=== PATIENT | male | born 1975 | race Caucasian/White ===

== ENCOUNTER 2016-08-05 12:52 | Emergency (ER) | payer BC ==
[~2016-08-05] VITALS: Ht 177.8 cm; Wt 96.0 kg
[~2016-08-05 12:52] MED LIST: OMEP20CA59 PO
[2016-08-05 12:57] VITALS: TEMP 37.1; Ht 177.8 cm; Wt 96.0 kg
[2016-08-05 13:40] LABS: BASO % 0.3 %; BASO ABS # 0.02 K/uL (0-0.2); COMPLETE YES; EOS % 7.3 %; HEMATOCRIT 45.4 % (42-52); IG% 0.3 %; LYMPH % 24.3 %; LYMPH ABS # 1.66 K/uL (1.2-3.4); MEAN CELL VOLUME 86.1 fL (80-100); MEAN CORPUSCULAR HEMOGLOBIN 31.5 pg (25-34); MEAN CORPUSCULAR HGB CONC 36.6 g/dl (32-36); MEAN PLATELET VOLUME 10.3 fL (7.4-10.4); MONO % 6.2 %; NEUT % 61.6 %; PLATELET COUNT 276 K/uL (130-400); RED BLOOD COUNT 5.27 M/uL (4.7-6.1); WHITE BLOOD COUNT 6.82 K/uL (4.8-10.8)
[2016-08-05 13:48] LABS: PARTIAL THROMBOPLASTIN RATIO 1.2; PROTHROMBIN TIME (PATIENT) 10.5 SECONDS (9.0-12.0)
[2016-08-05 13:56] LABS: CREATININE 1.1 mg/dl (0.60-1.40); MAGNESIUM 2.2 mg/dl (1.8-2.4); POTASSIUM 4.1 mmol/L (3.5-5.1)
--- NOTE | 2016-08-05 14:00 | DIAGNOSTIC IMAGING REPORT ---
CHEST ONE VIEW PORTABLE CLINICAL HISTORY: Substernal Chest Pain DIZZINESS COMPARISON STUDY: No previous studies for comparison. FINDINGS: The cardiac and mediastinal contours are normal. There is no evidence of focal pulmonary consolidation. There is no evidence of failure. No pleural effusions are visualized.[ There is a calcified granuloma the left lung base. IMPRESSION: No active disease in the chest. Electronically signed by: Livan Mayberry M.D. 08/05/2016 1:59 PM Dictated Date/Time: 08/05/2016 1:59 PM
[2016-08-05 14:05] VITALS: O2SAT 98
[2016-08-05 14:06] LABS: ALB/GLOB RATIO 1.3 (0.9-2); CKMB/CK RATIO 0.5 (0-3.0); THYROID STIMULATING HORMONE 0.659 uIu/ml (0.300-4.500)
[2016-08-05 14:55] LABS: CALCIUM 9.1 mg/dl (8.5-10.1)
--- NOTE | 2016-08-05 16:44 | EMERGENCY ROOM VISIT NOTE ---
History First contact with patient: 13:05 Chief Complaint: CARDIAC ASSESSMENT Stated Complaint: CHEST PAIN,LOSS OF BALANCE,DIZZY Nursing Triage Summary: PT REPORTS CHEST PAIN FOR APPROX 5-6 MONTHS. REPORTS PAIN IS MIDSTERNAL. PT REPORTS THE LAST FEW DAYS HE HAS BEEN FEELING DIZZY AND "LIKE MY EQUILIBRIUM IS OFF." History of Present Illness The patient is a 41 year old male who presents to the Emergency Room via private vehicle with complaints of "chest pain, loss of balance, dizzy". The patient states that while working out approximately 7 months ago, he developed chest pain with heavy lifting. He thought perhaps he was overdoing the exercise therefore has stopped exercising since that point. He has had chest pain since that incident 7 months ago. He notes that it will wax and wane. He states that 3 nights ago he was walking the dog with his daughter, and then began to feel dizzy, almost like he was going to fall over and then developed mid substernal chest pain. He said the chest pain was very minimal. He states that the chest pain will sometimes radiate into his back. He states that it is been worse over the past few days, and he has now concerned over the dizziness. He notes left shoulder pain and right shoulder pain. There is minimal shortness of breath. He does have a history of acid reflux. He denies any fevers, chills, weakness. Review of Systems A complete 10-point Review of Systems was discussed with the patient, with pertinent positives and negatives listed in the History of Present Illness. All remaining Review of Systems questions can be considered negative unless otherwise specified. Past Medical/Surgical History Stomach problems Family History Does not know Social History Smoking Status: Never Smoker Alcohol Use: occasionally Occupation Status: employed Current/Historical Medications Scheduled Omeprazole (Prilosec), 20 MG PO DAILY Allergies Coded Allergies: No Known Allergies (Unverified , 06/17/15) Physical Exam Vital Signs Date Time Temp Pulse Resp B/P (MAP) Pulse Ox O2 Delivery O2 Flow Rate FiO2 08/05/16 16:54 74 18 133/90 95 08/05/16 15:06 82 18 99 08/05/16 15:01 126/93 08/05/16 14:36 101 13 96 08/05/16 14:31 137/86 08/05/16 14:06 80 19 98 08/05/16 14:05 98 Room Air 08/05/16 14:05 80 16 145/82 97 Room Air 08/05/16 13:20 96 08/05/16 13:06 69 159/91 81 147/88 94 151/99 08/05/16 12:57 37.1 86 18 147/89 100 Room Air Physical Exam VITAL SIGNS - Vital signs and nursing notes were reviewed. Patient is afebrile , hypertensive, non-tachycardic and is saturating well on room air 100%. GENERAL -41-year-old male appearing his stated age who is in no acute distress. Communicates well with provider and answers questions appropriately. SKIN - Without rashes. No petechial rashes. HEAD - NC/AT. EYES - PERRL with EOMI bilaterally. Sclera anicteric. Palpebral conjunctiva pink and moist with no injection noted. EARS - No deformities of external structures noted on gross examination bilaterally. No pain elicited with palpation of the tragus bilaterally. External auditory canals without discharge or otorrhea. Tympanic membranes pearly pham without retraction or bulging. No fluid or purulent material visualized behind the TM. Handle of malleus, umbo, cone of light, pars tensa/ flaccid all easily visualized. There is a hearing aid device in the left ear canal. NOSE - Midline and without cyanosis. No epistaxis or purulent drainage noted. Septum midline without deviation or septal hematoma noted. MOUTH/OROPHARYNX - Without perioral cyanosis. Buccal mucosa pink and moist and without leukoplakia. Tongue midline with equal elevation of palate bilaterally. No tonsillar hypertrophy, erythema, or exudates noted. Fair dentition noted. NECK - Neck with FROM. Supple to palpation. No lymphadenopathy noted. No nuchal rigidity. LUNGS - Chest wall symmetric without accessory muscle use, intercostals retractions, or central cyanosis. Normal vesicular breath sounds CTA B/L. No wheezes, rales, or rhonchi appreciated. CARDIAC - RRR with S1/S2. No murmur, rubs, or gallops appreciated. ABDOMEN - Abdominal contour without pulsations or visible masses. BS normoactive all four quadrants. No tenderness, palpable masses, hepatosplenomegaly, or ascites noted. EXTREMITIES - No clubbing or peripheral cyanosis. No pretibial edema present. +5 /5 strength noted in UE/LE bilaterally. NEUROLOGIC - Cranial nerves II through XII grossly intact. Sensory intact to light touch throughout. Patellar reflexes +2/4., normal HINTS examination PSYCH - Pt is very pleasant and interacts well with examiner. Medical Decision & Procedures ER Provider Diagnostic Interpretation: CHEST ONE VIEW PORTABLE CLINICAL HISTORY: Substernal Chest Pain DIZZINESS COMPARISON STUDY: No previous studies for comparison. FINDINGS: The cardiac and mediastinal contours are normal. There is no evidence of focal pulmonary consolidation. There is no evidence of failure. No pleural effusions are visualized.[ There is a calcified granuloma the left lung base. IMPRESSION: No active disease in the chest. Electronically signed by: Livan Mayberry M.D. 08/05/2016 1:59 PM Dictated Date/Time: 08/05/2016 1:59 PM Laboratory Results 08/05/16 13:20 Red Blood Count 5.27, Mean Corpuscular Volume 86.1, Mean Corpuscular Hemoglobin 31.5, Mean Corpuscular Hemoglobin Concent 36.6, Mean Platelet Volume 10.3, Neutrophils (%) (Auto) 61.6, Lymphocytes (%) (Auto) 24.3, Monocytes (%) (Auto) 6.2, Eosinophils (%) (Auto) 7.3, Basophils (%) (Auto) 0.3, Neutrophils # (Auto) 4.20, Lymphocytes # (Auto) 1.66, Monocytes # (Auto) 0.42, Eosinophils # (Auto) 0.50, Basophils # (Auto) 0.02 08/05/16 13:20 Test 08/05/16 13:20 08/05/16 13:37 08/05/16 15:31 White Blood Count 6.82 K/uL (4.8-10.8) Red Blood Count 5.27 M/uL (4.7-6.1) Hemoglobin 16.6 g/dL (14.0-18.0) Hematocrit 45.4 % (42-52) Mean Corpuscular Volume 86.1 fL (80-100) Mean Corpuscular Hemoglobin 31.5 pg (25-34) Mean Corpuscular Hemoglobin Concent 36.6 g/dl (32-36) Platelet Count 276 K/uL (130-400) Mean Platelet Volume 10.3 fL (7.4-10.4) Neutrophils (%) (Auto) 61.6 % Lymphocytes (%) (Auto) 24.3 % Monocytes (%) (Auto) 6.2 % Eosinophils (%) (Auto) 7.3 % Basophils (%) (Auto) 0.3 % Neutrophils # (Auto) 4.20 K/uL (1.4-6.5) Lymphocytes # (Auto) 1.66 K/uL (1.2-3.4) Monocytes # (Auto) 0.42 K/uL (0.11-0.59) Eosinophils # (Auto) 0.50 K/uL (0-0.5) Basophils # (Auto) 0.02 K/uL (0-0.2) RDW Standard Deviation 40.8 fL (36.4-46.3) RDW Coefficient of Variation 12.8 % (11.5-14.5) Immature Granulocyte % (Auto) 0.3 % Immature Granulocyte # (Auto) 0.02 K/uL (0.00-0.02) Prothrombin Time 10.5 SECONDS (9.0-12.0) Prothromb Time International Ratio 1.0 (0.9-1.1) Activated Partial Thromboplast Time 30.2 SECONDS (21.0-31.0) Partial Thromboplastin Ratio 1.2 Anion Gap 10.0 mmol/L (3-11) Est Creatinine Clear Calc Drug Dose 104.8 ml/min Estimated GFR () 97.5 Estimated GFR (Non- 84.1 BUN/Creatinine Ratio 11.0 (10-20) Calcium Level 9.1 mg/dl (8.5-10.1) Magnesium Level 2.2 mg/dl (1.8-2.4) Total Bilirubin 0.9 mg/dl (0.2-1) Aspartate Amino Transf (AST/SGOT) 12 U/L (15-37) Alanine Aminotransferase (ALT/SGPT) 30 U/L (12-78) Alkaline Phosphatase 50 U/L (45-117) Total Creatine Kinase 122 U/L (39-308) Creatine Kinase MB 0.6 ng/ml (0.5-3.6) Creatine Kinase MB Ratio 0.5 (0-3.0) Total Protein 7.7 gm/dl (6.4-8.2) Albumin 4.4 gm/dl (3.4-5.0) Globulin 3.3 gm/dl (2.5-4.0) Albumin/Globulin Ratio 1.3 (0.9-2) Thyroid Stimulating Hormone (TSH) 0.659 uIu/ml (0.300-4.500) Bedside D-Dimer 83 ng/mlFEU (0-450) Bedside Troponin I 0.000 ng/ml (0-0.045) Medical Decision Patient was seen and evaluated as above. After obtaining a thorough history and physical examination IV access is initiated a workup was performed. Patient presents today with 7 months of chest pain, this been worse over the past 3 days. There is associated dizziness. Clinically he appears unremarkable. His EKG shows normal sinus rhythm him a no ectopy or ischemic change. No previous for comparison. Chest x-ray is unremarkable for acute process. CBC reveals no leukocytosis or anemia. Coagulation studies within normal limits. D-dimer is unremarkable. Electrolytes unremarkable. AST low at 12. Troponin negative 2. Thyroid function within normal limits. The patient this time I do not suspect is experiencing any emergent cause of this chest pain or dizziness. My attending physician performed the H INT S examination. This was normal. I do believe the patient can be followed up in the outpatient setting with his family doctor, with potential Holter monitor, stress test or other modalities which can be done in the outpatient setting. He does not appear to have any risk factors at this time of which would warrant observation inpatient admission. The case was discussed with my attending, who also personally evaluated the patient. Patient was educated upon worrisome symptoms which to return, had questions prior to discharge, and was discharged home in good condition. He is to call her family doctor first thing when he leaves here or tomorrow morning to schedule follow-up. In evaluation treatment this patient following differential diagnoses entertained: CVA, TIA, tumor, malignancy, TX, PE, pneumonia, lung cancer, among others. Impression Primary Impression: Chest pain Additional Impression: Dizziness Departure Information Dispostion Home / Self-Care Condition GOOD Referrals No Doctor, Assigned (PCP) Patient Instructions My [facility] Additional Instructions You were seen in the emergency department for chest pain and dizziness. Laboratory studies and imaging has ruled out any emergent cause at this time however, it is recommended that he follow up with your family doctor by calling them as soon as possible regarding today's visit. Please refrain from strenuous physical activity until seen and evaluated by your family doctor, and potentially a spare fixer. Please return to the emergency department with any new/concerning symptoms. Thank you for your time. Problem Qualifiers
[2016-08-05 16:54] VITALS: BP 133/90; PULSE 74; O2SAT 95
== END 2016-08-05 16:56 | disposition home or self-care (01) ==
LOC: C.EDB 12:54 → C.EDC 16:56
DX: R07.9 Chest pain, unspecified (principal); R42 Dizziness and giddiness

== ENCOUNTER → 2016-08-19 | Outpatient (CLI) | payer BC ==
--- NOTE | 2016-08-19 10:42 | DIAGNOSTIC IMAGING REPORT ---
CHEST CT WITHOUT CONTRAST CT DOSE: 432.36 mGy.cm HISTORY: R93.8 Abnormal chest xrayleft lower lobe calcified granuloma on TECHNIQUE: Multiaxial CT images of the chest were performed without contrast. COMPARISON: Chest series dated 08/05/2016 FINDINGS: Benign calcified granuloma left lung base. Lungs otherwise appear clear. There are no focal infiltrates. No significant hilar or mediastinal adenopathy. IMPRESSION: Calcified granuloma left lung base considered a benign finding. Study is otherwise negative. Electronically signed by: James Heller M.D. 08/19/2016 10:41 AM Dictated Date/Time: 08/19/2016 10:37 AM
== END | disposition home or self-care (01) ==
LOC: C.CTS 09:46
PROVIDERS: ATTEND Nurse Practitioner
DX: R93.8 Abnormal findings on diagnostic imaging of other specified body structures (principal)

== ENCOUNTER 2021-01-21 05:36 | Inpatient (IN) ==
[2021-01-21] MEDS ORDERED: LORazepam 1 MG/2 ML VIAL IV STA (06:19)
[2021-01-21] MEDS ORDERED: dexAMETHasone**PF** 10 MG/ML VIAL IV ONE (06:19)
[2021-01-21] MEDS ORDERED: KETOROLAC 30 MG/ML VIAL IV STA (06:19)
[2021-01-21] MEDS ORDERED: SODIUM CHLORIDE 0.9% 1000ML 1,000 ML IV SCH (06:30)
--- NOTE | 2021-01-21 07:09 | Emergency Department Note ---
History of Present Illness General Chief complaint: Leg Injury/Pain Stated complaint: LEFT LEG PAIN FROM HIP TO ANKLE Time Seen by Provider: 01/21/21 05:49 History of Present Illness Maximum Pain Intensity: 10 This is a 45-year-old male presenting to the emergency department for severe 10 /10 pain from his left hip into his left lower leg. The patient has had symptoms like this for the past 2 weeks, and this is his third visit to the ER with this complaint. The patient has followed with interventional pain management and had recent injections under fluoroscopy. He was seen by pain management yesterday, where it was documented that he had decreased L4 reflexes, and MRI was to be ordered, but has not yet been performed. The patient states that he left his appointment yesterday with pain management feeling well, however around 10 PM he had worsening of symptoms, this is roughly 8 hours ago. He states that he took a dose of oxycodone without any relief of symptoms. He has not had fevers or chills. No loss of bowel or bladder control. Home Medications Medication Instructions Recorded Confirmed Type Saccharomyces boulardii 250 mg 250 mg PO DAILY cap 09/23/20 01/21/21 History capsule (Daily Probiotic (S. boulardii)) cholecalciferol (vitamin D3) 125 125 mcg PO DAILY 11/05/20 01/21/21 History mcg (5,000 unit) capsule cyanocobalamin (vitamin B-12) 1,000 mcg PO DAILY 11/05/20 01/21/21 History 1,000 mcg capsule oxycodone 5 mg tablet 5 mg PO Q6H PRN #14 tab 01/08/21 01/21/21 Rx omeprazole 10 mg capsule,delayed 10 mg PO QAM #90 cap 01/13/21 01/21/21 Rx release cyclobenzaprine 10 mg tablet 10 mg PO Q8H #20 tab 01/18/21 01/21/21 Rx methylprednisolone 4 mg tablets in See Rx Instructions .ROUTE 01/18/21 01/21/21 Rx a dose pack (Medrol (Mikel)) .COMPLEX #21 ea gabapentin 300 mg capsule 300 mg PO .COMPLEX #90 cap 01/20/21 01/21/21 Rx ascorbic acid (vitamin C) 500 mg 500 mg PO DAILY 01/21/21 01/21/21 History tablet (Vitamin C) Allergies Allergy/AdvReac Type Severity Reaction Status Date / Time doxycycline Allergy Mild rash on Verified 01/21/21 07:20 chest naproxen AdvReac Intermediate constipatio Verified 01/21/21 07:20 n Past Med/Surg History Medical History Arthritis Chronic low back pain Chronic sinusitis Deafness in right ear Depression with anxiety not taking prescribed meds currently Elevated blood pressure reading without diagnosis of hypertension last check 138/85 Gastritis GERD (gastroesophageal reflux disease) History of COVID-23 Feb 2020 IBS (irritable bowel syndrome) Lower extremity weakness Lumbar radiculopathy Myofascial pain Nausea and vomiting after administration of anesthetic agent Partial deafness of left ear Sacroiliac joint pain TMJ (temporomandibular joint disorder) no issues, no surgery Vitamin D deficiency Surgical History History of colonoscopy with polypectomy History of esophagogastroduodenoscopy (EGD) History of toe surgery History of tonsillectomy and adenoidectomy History of wisdom tooth extraction S/P nasal surgery Status post excision of lipoma off right shoulder Family History Unknown Breast cancer Grandfather (Maternal) Stroke Grandmother (Paternal) Family history of diabetes mellitus Other Heart disease No family history of adverse response to anesthesia Denies family history of Ovarian cancer Prostate cancer Myocardial infarction Colorectal cancer Social History Smoking Status: Former smoker Age Started Using Tobacco: 28; Age Quit Using Tobacco: 35; packs per day: 1; Years Smoked: 7; Cigarettes Per Day: 20; Second Hand Exposure: No; Hx Alcohol Use: Yes Alcohol type: hard liquor Hx Substance Use: Yes Last Used Substance: Days (ago) Last Used Substance Other:: last use 1 week ago Substance Use Type Other:: marijuana approx 2x per month > advised Preferred Language: Croatian Communication Ability: Effective Visual Impairment: No Limitations Hearing Ability: Hard of Hearing General Merchandise Manager Required: No Beliefs That Will Affect Care: None marital status: Current Living Situation: Spouse Current Living Situation Comment: Lives with and 14 yr old daughter current occupational status: employed current occupation: [employer] Feels Safe at Home: Yes Childhood Exposure to Second-Hand Smoke: Yes (parents) Assistive Devices: None Review of Systems A total of 10 systems reviewed and were otherwise negative Physical Exam Vital Signs Vital Signs - 24 hr 01/21/21 05:42 01/21/21 07:30 Temperature 36.4 C L Temperature Source Temporal Artery Scan Pulse Rate 121 H Pulse Rate [Right Finger] 56 L Pulse Rhythm [Right Finger] Regular Pulse Strength [Right Finger] Normal Respiratory Rate 24 20 Respiratory Effort / Characteristics Non-Labored Non-Labored Spontaneous Respiratory Depth Shallow Normal Respiratory Pattern Regular Blood Pressure 154/113 H Blood Pressure [Right Arm] 164/111 H Blood Pressure Mean 126 Blood Pressure Mean [Right Arm] 128 Blood Pressure Position [Right Arm] Sitting Pulse Oximetry 93 98 Oxygen Delivery Method Room Air Sepsis Recent Fever Within 48 Hours No Sepsis New/Unexplained Change in Mental Status No Sepsis Action Taken by Nursing No Action Required VITALS: Vitals are noted on the nurse's note and reviewed by myself. Vital signs stable. GENERAL: Well-developed, well-nourished, white male who appears reviewed significant discomfort. Any movement seems to elicit pain in his left leg. He is laying on the ER bed on his left side with his leg pulled up near his chest. NECK: Supple without nuchal rigidity. No lymphadenopathy. No thyromegaly. Cervical spine is nontender. HEART: Regular rate and rhythm without murmurs gallops or rubs. LUNGS: Clear to auscultation bilaterally without wheezes, rales or rhonchi. No retractions or accessory muscle use. BACK: Mild tenderness in the left side low back. There is reproducible tenderness in the left hip. Positive straight leg raise on left. No distinct saddle paresthesia. Patient is mildly cooperative with exam, secondary to his discomfort. ABDOMEN: Positive normal bowel sounds x 4. Soft, nontender, without masses or organomegaly. No guarding or rebound tenderness. MUSCULOSKELETAL: No muscle atrophy, erythema, or edema noted. Course Administered Medications Morphine Sulfate (Morphine Sulfate 4 Mg/Ml 1 Ml Carp\Vial) 4 mg IV Q30M PRN PRN Reason: Pain Stop: 02/04/21 06:18 Last Admin: 01/21/21 07:30 Dose: 4 mg Documented by: [id number] Discontinued Medications Dexamethasone Sodium Phosphate (DexamethasonePf 10 Mg/Ml Vial) 10 mg IV NOW ONE Stop: 01/21/21 06:20 Last Admin: 01/21/21 06:42 Dose: 10 mg Documented by: [id number] Sodium Chloride (Nss 1000ml) 1,000 mls @ 999 mls/hr IV .Q1H1M MARI Stop: 01/21/21 07:30 Last Infusion: 01/21/21 07:37 Dose: 0 mls/hr Documented by: [id number] Admin: 01/21/21 06:40 Dose: 999 mls/hr Documented by: [id number] Lorazepam (Ativan) 1 mg in 2 mls @ 2 mls/min IV NOW STA Stop: 01/21/21 06:20 Last Admin: 01/21/21 06:41 Dose: 2 mls/min Documented by: [id number] Ketorolac Tromethamine (Ketorolac 30 Mg/Ml Vial) 30 mg IV NOW STA Stop: 01/21/21 06:20 Last Admin: 01/21/21 06:41 Dose: 30 mg Documented by: [id number] Medical Decision Making Differential Diagnosis Differential diagnosis: Etiologies such as muscular strain, fracture, metastatic disease, disc herniation, sciatica, epidural abscess, vertebral osteomyelitis, discitis, spinal epidural hematoma, cord compression, cauda equina/conus medullaris syndrome, aortic disease, infection, shingles, renal colic UTI/pyelonephritis, gastrointestinal, acute exacerbation of chronic back pain, as well as others were entertained. Laboratory Data Result diagrams: 01/21/21 06:58 01/21/21 06:58 Lab Results 01/21/21 01/21/21 01/21/21 Range/Units 06:58 06:58 06:58 WBC 11.86 H (4.8-10.8) K/uL RBC 5.31 (4.7-6.1) M/uL Hgb 16.5 (14.0-18.0) g/dL Hct 46.4 (42-52) % MCV 87.4 (80-100) fL MCH 31.1 (25-34) pg MCHC 35.6 (32-36) g/dL RDW Std Deviation 39.9 (36.4-46.3) fL RDW Coeff of Praneeth 12.4 (11.5-14.5) % Plt Count 335 (130-400) K/uL MPV 9.8 (7.4-10.4) fL Immature Gran % (Auto) 0.2 % Neut % (Auto) 69.2 % Lymph % (Auto) 23.9 % [place] % (Auto) 6.1 % Eos % (Auto) 0.4 % Baso % (Auto) 0.2 % Neut # (Auto) 8.21 H (1.4-6.5) K/uL Lymph # (Auto) 2.84 (1.2-3.4) K/uL [place] # (Auto) 0.72 H (0.11-0.59) K/uL Eos # (Auto) 0.05 (0-0.5) K/uL Baso # (Auto) 0.02 (0-0.2) K/uL Immature Gran # (Auto) 0.02 (0.00-0.02) K/uL ESR 2 (0-15) mm/hr Sodium 137 (136-145) mmol/L Potassium 3.9 (3.5-5.1) mmol/L Chloride 105 (98-107) mmol/L Carbon Dioxide 26 (21-32) mmol/L Anion Gap 6.0 (3-11) BUN 17 (7-18) mg/dl Creatinine 1.16 (0.6-1.4) mg/dl Est Cr Clr Drug Dosing 98.8 ml/min Est GFR ( Amer) 88.9 ml/min Est GFR (Non-Af Amer) 76.7 ml/min BUN/Creatinine Ratio 14.5 (10-20) Glucose 92 (70-99) mg/dl Calcium 10.1 (8.5-10.1) mg/dl Total Bilirubin 1.1 H (0.2-1) mg/dl AST 11 L (15-37) U/L ALT 39 (12-78) U/L Alkaline Phosphatase 52 (45-117) U/L C-Reactive Protein < 0.29 (0-0.29) mg/dl Total Protein 8.4 H (6.4-8.2) gm/dl Albumin 4.7 (3.4-5.0) gm/dl Globulin 3.7 (2.5-4.0) gm/dl Albumin/Globulin Ratio 1.3 (0.9-2) MDM Narrative Physical exam and history were performed. Nursing notes, EMR, and Medication List were personally reviewed. Patient appears to have significant pain in his left leg. He does seem to have some weakness as well as some low back pain. He was seen by pain management yesterday where they were planning on ordering MRI for L4 symptoms. The patient had worsening of symptoms overnight. IV access was established and labs were obtained. He was hydrated with normal saline and given IV morphine, IV Toradol, IV Decadron, and IV Ativan. He was sent to MRI for further evaluation. The patient's blood work is as above and was reviewed. He does not have a significantly elevated white blood cell count, gross anemia, bandemia, or significant electrolyte imbalance. The patient did have improvement of symptoms after treatment here in the ER. He remained in stable condition until the time of shift change. At this time MRI is pending. The case was discussed with my colleague, Jessie Gonzalez PA-C, who will assume care at this time. Please see . Lisa's dictation for further patient course, plan, and disposition pending further imaging. The chart was completed utilizing [employer] Voice Recognition Software. Grammatical errors, random word insertions, pronoun errors, and incomplete sentences are an occasional consequence of this system due to software limitations, ambient noise, and hardware issues. Any formal questions or concerns about the content, text, or information contained within the body of this dictation should be directly addressed to the provider for clarification. . Impression & Plan Lower extremity weakness, Acute low back pain with sciatica Discharge Plan Visit Data Chief Complaint: Leg Injury/Pain Stated Complaint: LEFT LEG PAIN FROM HIP TO ANKLE ED Provider: James Lee ED Midlevel Provider: Oj Kuo Discharge Problem: Lower extremity weakness, Acute low back pain with sciatica Forms Stand Alone Forms: [facility] [employer] Prescriptions Prescriptions: No Action gabapentin 300 mg capsule 300 mg PO .COMPLEX Qty: 90 RF: 2 omeprazole 10 mg capsule,delayed release(DR/EC) 10 mg PO QAM Qty: 90 RF: 3 Saccharomyces boulardii [Daily Probiotic (S. boulardii)] 250 mg capsule 250 mg PO DAILY RF: 0 cholecalciferol (vitamin D3) 125 mcg (5,000 unit) capsule 125 mcg PO DAILY RF: 0 cyanocobalamin (vitamin B-12) 1,000 mcg capsule 1,000 mcg PO DAILY RF: 0 oxycodone 5 mg tablet 5 mg PO Q6H PRN (Reason: pain) Qty: 14 RF: 0 cyclobenzaprine 10 mg tablet 10 mg PO Q8H Qty: 20 RF: 0 methylprednisolone [Medrol (Mikel)] 4 mg tablets,dose pack See Rx Instructions .ROUTE .COMPLEX Qty: 21 RF: 0 ascorbic acid (vitamin C) [Vitamin C] 500 mg Tablet 500 mg PO DAILY RF: 0 Referrals Referrals: Yessi Mcknight CRNP [Primary Care Provider] -
[2021-01-21 07:10] LABS: Basophils # (auto) 0.02 K/uL (0-0.2); Basophils % (auto) 0.2 %; Eosinophils # (auto) 0.05 K/uL (0-0.5); Eosinophils % (auto) 0.4 %; Hematocrit (blood only) 46.4 % (42-52); Hemoglobin 16.5 g/dL (14.0-18.0); Immature Granulocytes # (auto) 0.02 K/uL (0.00-0.02); Immature Granulocytes % (auto) 0.2 %; Lymphocytes # (auto) 2.84 K/uL (1.2-3.4); Lymphocytes % (auto) 23.9 %; Mean Corpuscular Hemoglobin 31.1 pg (25-34); Mean Corpuscular Hgb Conc 35.6 g/dL (32-36); Mean Corpuscular Volume 87.4 fL (80-100); Mean Platelet Volume 9.8 fL (7.4-10.4); Monocytes # (auto) 0.72 K/uL (0.11-0.59); Monocytes % (auto) 6.1 %; Neutrophils # (auto) 8.21 K/uL (1.4-6.5); Neutrophils % (auto) 69.2 %; Platelet Count 335 K/uL (130-400); RDW Coefficient of Variation 12.4 % (11.5-14.5); RDW Standard Deviation 39.9 fL (36.4-46.3); Red Blood Count 5.31 M/uL (4.7-6.1); White Blood Count 11.86 K/uL (4.8-10.8)
[2021-01-21 07:27] LABS: Alanine Aminotransferase 39 U/L (12-78); Albumin Level 4.7 gm/dl (3.4-5.0); Aspartate Aminotransferase 11 U/L (15-37); BUN Creatinine Ratio 14.5 (10-20); Blood Urea Nitrogen 17 mg/dl (7-18); Calcium 10.1 mg/dl (8.5-10.1); Carbon Dioxide 26 mmol/L (21-32); Chloride 105 mmol/L (98-107); Creatinine Clr Calc Pharmacy 98.8 ml/min; Est GFR (African American) 88.9 ml/min; Est GFR (Non-African American) 76.7 ml/min; Glucose 92 mg/dl (70-99); Potassium 3.9 mmol/L (3.5-5.1); Sodium 137 mmol/L (136-145)
[2021-01-21 07:30] LABS: Albumin Globulin Ratio 1.3 (0.9-2); Alkaline Phosphatase 52 U/L (45-117); Bilirubin,Total 1.1 mg/dl (0.2-1); C Reactive Protein < 0.29 mg/dl (0-0.29); Globulin 3.7 gm/dl (2.5-4.0); Total Protein 8.4 gm/dl (6.4-8.2)
[2021-01-21] MEDS: MoRPHine SULFATE 4 MG/ML 1 ML CARP\\VIAL IV PRN ×2 (07:30→10:01)
--- NOTE | 2021-01-21 08:44 | Emergency Department Note ---
Impression & Plan Lower extremity weakness, Acute low back pain with sciatica ED Provider Note Patient care was assumed from my colleague, Oj Kuo PA-C, at the time of shift change. Please see their dictation for full history of present illness and emergency department course prior to my assumption of care. At the time of shift change, MRI L-spine was pending. This was obtained and reviewed by radiologist and myself as below. Of note, there is a large disc herniation eccentric to the left at L3-L4 with an inferiorly extruded fragment causing moderate to severe central canal stenosis and impinges on the transiting left- sided nerve roots. Noted to be new from 08/01/2020. Upon reevaluation, the patient was resting in bed, no acute distress. He stated that he felt fine when laying still but his symptoms were exacerbated with any movement. I discussed the results of the above findings with him at bedside. I then contacted Dr. England of [facility]. He suggested contacting medicine for possible admission and he planned to evaluate the patient later this afternoon. Patient was informed on my conversation with Dr. England and he agreed with this. Dr. Anguiano of [facility] was contacted and also agreed to evaluate the patient. The patient verbalized his understanding and agr eement with this treatment plan. Past Med/Surg History Medical History Arthritis Chronic low back pain Chronic sinusitis Deafness in right ear Depression with anxiety not taking prescribed meds currently Elevated blood pressure reading without diagnosis of hypertension last check 138/85 Gastritis GERD (gastroesophageal reflux disease) History of COVID-23 Feb 2020 IBS (irritable bowel syndrome) Lower extremity weakness Lumbar radiculopathy Myofascial pain Nausea and vomiting after administration of anesthetic agent Partial deafness of left ear Sacroiliac joint pain TMJ (temporomandibular joint disorder) no issues, no surgery Vitamin D deficiency Surgical History History of colonoscopy with polypectomy History of esophagogastroduodenoscopy (EGD) History of toe surgery History of tonsillectomy and adenoidectomy History of wisdom tooth extraction S/P nasal surgery Status post excision of lipoma off right shoulder Family History Unknown Breast cancer Grandfather (Maternal) Stroke Grandmother (Paternal) Family history of diabetes mellitus Other Heart disease No family history of adverse response to anesthesia Denies family history of Ovarian cancer Prostate cancer Myocardial infarction Colorectal cancer Social History Smoking Status: Former smoker Age Started Using Tobacco: 28; Age Quit Using Tobacco: 35; packs per day: 1; Years Smoked: 7; Cigarettes Per Day: 20; Second Hand Exposure: No; Hx Alcohol Use: Yes Alcohol type: hard liquor Hx Substance Use: Yes Last Used Substance: Days (ago) Last Used Substance Other:: last use 1 week ago Substance Use Type Other:: marijuana approx 2x per month > advised Preferred Language: Cambodian Communication Ability: Effective Visual Impairment: No Limitations Hearing Ability: Hard of Hearing Set And Exhibit Designer Required: No Beliefs That Will Affect Care: None marital status: Current Living Situation: Spouse Current Living Situation Comment: Lives with and 14 yr old daughter current occupational status: employed current occupation: [employer] Feels Safe at Home: Yes Childhood Exposure to Second-Hand Smoke: Yes (parents) Assistive Devices: None Allergies Allergies Allergy/AdvReac Type Severity Reaction Status Date / Time doxycycline Allergy Mild rash on Verified 01/21/21 07:20 chest naproxen AdvReac Intermediate constipatio Verified 01/21/21 07:20 n Home Meds Home Medications Medication Instructions Recorded Confirmed Saccharomyces boulardii 250 mg 250 mg PO DAILY cap 09/23/20 01/21/21 capsule (Daily Probiotic (S. boulardii)) cholecalciferol (vitamin D3) 125 125 mcg PO DAILY 11/05/20 01/21/21 mcg (5,000 unit) capsule cyanocobalamin (vitamin B-12) 1,000 mcg PO DAILY 11/05/20 01/21/21 1,000 mcg capsule ascorbic acid (vitamin C) 500 mg 500 mg PO DAILY 01/21/21 01/21/21 tablet (Vitamin C) Previous Rx's Medication Instructions Recorded oxycodone 5 mg tablet 5 mg PO Q6H PRN #14 tab 01/08/21 omeprazole 10 mg capsule,delayed 10 mg PO QAM #90 cap 01/13/21 release cyclobenzaprine 10 mg tablet 10 mg PO Q8H #20 tab 01/18/21 methylprednisolone 4 mg tablets in See Rx Instructions .ROUTE 01/18/21 a dose pack (Medrol (Mikel)) .COMPLEX #21 ea gabapentin 300 mg capsule 300 mg PO .COMPLEX #90 cap 01/20/21 Results & Data (ED) Vital Signs Vital Signs - 24 hr 01/21/21 05:42 01/21/21 07:30 01/21/21 09:35 Temperature 36.4 C L Temperature Source Temporal Artery Scan Pulse Rate 121 H Pulse Rate [Right Finger] 56 L 112 H Pulse Rhythm [Right Finger] Regular Regular Pulse Strength [Right Finger] Normal Normal Respiratory Rate 24 20 20 Respiratory Effort / Characteristics Non-Labored Non-Labored Spontaneous Non-Labored Spontaneous Respiratory Depth Shallow Normal Normal Respiratory Pattern Regular Regular Blood Pressure 154/113 H Blood Pressure [Right Arm] 164/111 H 150/89 H Blood Pressure Mean 126 Blood Pressure Mean [Right Arm] 128 109 Blood Pressure Position [Right Arm] Sitting Sitting Pulse Oximetry 93 98 93 Oxygen Delivery Method Room Air Room Air Sepsis Recent Fever Within 48 Hours No Sepsis New/Unexplained Change in Mental Status No Sepsis Action Taken by Nursing No Action Required 01/21/21 10:30 01/21/21 11:11 Temperature Temperature Source Pulse Rate Pulse Rate [Right Finger] 94 H 70 Pulse Rhythm [Right Finger] Regular Pulse Strength [Right Finger] Normal Respiratory Rate 20 18 Respiratory Effort / Characteristics Non-Labored Spontaneous Respiratory Depth Normal Respiratory Pattern Regular Blood Pressure Blood Pressure [Right Arm] 147/89 H 149/81 H Blood Pressure Mean Blood Pressure Mean [Right Arm] 108 103 Blood Pressure Position [Right Arm] Sitting Pulse Oximetry 94 95 Oxygen Delivery Method Room Air Room Air Sepsis Recent Fever Within 48 Hours Sepsis New/Unexplained Change in Mental Status Sepsis Action Taken by Nursing Laboratory Data Result diagrams: 01/21/21 06:58 01/21/21 06:58 Lab Results 01/21/21 01/21/21 01/21/21 Range/Units 06:58 06:58 06:58 WBC 11.86 H (4.8-10.8) K/uL RBC 5.31 (4.7-6.1) M/uL Hgb 16.5 (14.0-18.0) g/dL Hct 46.4 (42-52) % MCV 87.4 (80-100) fL MCH 31.1 (25-34) pg MCHC 35.6 (32-36) g/dL RDW Std Deviation 39.9 (36.4-46.3) fL RDW Coeff of Praneeth 12.4 (11.5-14.5) % Plt Count 335 (130-400) K/uL MPV 9.8 (7.4-10.4) fL Immature Gran % (Auto) 0.2 % Neut % (Auto) 69.2 % Lymph % (Auto) 23.9 % [place] % (Auto) 6.1 % Eos % (Auto) 0.4 % Baso % (Auto) 0.2 % Neut # (Auto) 8.21 H (1.4-6.5) K/uL Lymph # (Auto) 2.84 (1.2-3.4) K/uL [place] # (Auto) 0.72 H (0.11-0.59) K/uL Eos # (Auto) 0.05 (0-0.5) K/uL Baso # (Auto) 0.02 (0-0.2) K/uL Immature Gran # (Auto) 0.02 (0.00-0.02) K/uL ESR 2 (0-15) mm/hr Sodium 137 (136-145) mmol/L Potassium 3.9 (3.5-5.1) mmol/L Chloride 105 (98-107) mmol/L Carbon Dioxide 26 (21-32) mmol/L Anion Gap 6.0 (3-11) BUN 17 (7-18) mg/dl Creatinine 1.16 (0.6-1.4) mg/dl Est Cr Clr Drug Dosing 98.8 ml/min Est GFR ( Amer) 88.9 ml/min Est GFR (Non-Af Amer) 76.7 ml/min BUN/Creatinine Ratio 14.5 (10-20) Glucose 92 (70-99) mg/dl Calcium 10.1 (8.5-10.1) mg/dl Total Bilirubin 1.1 H (0.2-1) mg/dl AST 11 L (15-37) U/L ALT 39 (12-78) U/L Alkaline Phosphatase 52 (45-117) U/L C-Reactive Protein < 0.29 (0-0.29) mg/dl Total Protein 8.4 H (6.4-8.2) gm/dl Albumin 4.7 (3.4-5.0) gm/dl Globulin 3.7 (2.5-4.0) gm/dl Albumin/Globulin Ratio 1.3 (0.9-2) Urine Color Urine Appearance (Clear) Urine pH (4.5-7.5) Ur Specific [place] (1.000-1.030) Urine Protein (Negative) Urine Glucose (UA) (Negative) Urine Ketones (Negative) Urine Blood (Negative) Urine Nitrite (Negative) Urine Bilirubin (Negative) Urine Urobilinogen (Negative) Ur Leukocyte Esterase (Negative) Urine Opiates Screen (Neg) Ur Methadone, Qual (Neg) Urine Barbiturates (Neg) Ur Phencyclidine (PCP) (Neg) U Amphetamin/Meth Scrn (Neg) MDMA (Ecstasy) Screen (Neg) U Benzodiazepines Scrn (Neg) Ur Cocaine Metabolite (Neg) U Marijuana (THC) Screen (Neg) COVID-19 Eval Order 01/21/21 01/21/21 01/21/21 Range/Units 09:00 09:00 11:15 WBC (4.8-10.8) K/uL RBC (4.7-6.1) M/uL Hgb (14.0-18.0) g/dL Hct (42-52) % MCV (80-100) fL MCH (25-34) pg MCHC (32-36) g/dL RDW Std Deviation (36.4-46.3) fL RDW Coeff of Praneeth (11.5-14.5) % Plt Count (130-400) K/uL MPV (7.4-10.4) fL Immature Gran % (Auto) % Neut % (Auto) % Lymph % (Auto) % [place] % (Auto) % Eos % (Auto) % Baso % (Auto) % Neut # (Auto) (1.4-6.5) K/uL Lymph # (Auto) (1.2-3.4) K/uL [place] # (Auto) (0.11-0.59) K/uL Eos # (Auto) (0-0.5) K/uL Baso # (Auto) (0-0.2) K/uL Immature Gran # (Auto) (0.00-0.02) K/uL ESR (0-15) mm/hr Sodium (136-145) mmol/L Potassium (3.5-5.1) mmol/L Chloride (98-107) mmol/L Carbon Dioxide (21-32) mmol/L Anion Gap (3-11) BUN (7-18) mg/dl Creatinine (0.6-1.4) mg/dl Est Cr Clr Drug Dosing ml/min Est GFR ( Amer) ml/min Est GFR (Non-Af Amer) ml/min BUN/Creatinine Ratio (10-20) Glucose (70-99) mg/dl Calcium (8.5-10.1) mg/dl Total Bilirubin (0.2-1) mg/dl AST (15-37) U/L ALT (12-78) U/L Alkaline Phosphatase (45-117) U/L C-Reactive Protein (0-0.29) mg/dl Total Protein (6.4-8.2) gm/dl Albumin (3.4-5.0) gm/dl Globulin (2.5-4.0) gm/dl Albumin/Globulin Ratio (0.9-2) Urine Color Yellow Urine Appearance Clear (Clear) Urine pH 7.5 (4.5-7.5) Ur Specific [place] 1.013 (1.000-1.030) Urine Protein Negative (Negative) Urine Glucose (UA) Negative (Negative) Urine Ketones Negative (Negative) Urine Blood Negative (Negative) Urine Nitrite Negative (Negative) Urine Bilirubin Negative (Negative) Urine Urobilinogen Negative (Negative) Ur Leukocyte Esterase Negative (Negative) Urine Opiates Screen Pos H (Neg) Ur Methadone, Qual Neg (Neg) Urine Barbiturates Neg (Neg) Ur Phencyclidine (PCP) Neg (Neg) U Amphetamin/Meth Scrn Neg (Neg) MDMA (Ecstasy) Screen Neg (Neg) U Benzodiazepines Scrn Neg (Neg) Ur Cocaine Metabolite Neg (Neg) U Marijuana (THC) Screen Neg (Neg) COVID-19 Eval Order Covid19 at [facility] Administered Medications Morphine Sulfate (Morphine Sulfate 4 Mg/Ml 1 Ml Carp\Vial) 4 mg IV Q30M PRN PRN Reason: Pain Stop: 02/04/21 06:18 Last Admin: 01/21/21 10:01 Dose: 4 mg Documented by: [id number] Admin: 01/21/21 07:30 Dose: 4 mg Documented by: [id number] Discontinued Medications Dexamethasone Sodium Phosphate (DexamethasonePf 10 Mg/Ml Vial) 10 mg IV NOW ONE Stop: 01/21/21 06:20 Last Admin: 01/21/21 06:42 Dose: 10 mg Documented by: [id number] Sodium Chloride (Nss 1000ml) 1,000 mls @ 999 mls/hr IV .Q1H1M MARI Stop: 01/21/21 07:30 Last Infusion: 01/21/21 07:37 Dose: 0 mls/hr Documented by: [id number] Admin: 01/21/21 06:40 Dose: 999 mls/hr Documented by: [id number] Lorazepam (Ativan) 1 mg in 2 mls @ 2 mls/min IV NOW STA Stop: 01/21/21 06:20 Last Admin: 01/21/21 06:41 Dose: 2 mls/min Documented by: [id number] Ketorolac Tromethamine (Ketorolac 30 Mg/Ml Vial) 30 mg IV NOW STA Stop: 01/21/21 06:20 Last Admin: 01/21/21 06:41 Dose: 30 mg Documented by: [id number] Imaging Data Radiologist's Impression: Lumbar Spine MRI 01/21/21 06:19 MRI OF THE LUMBAR SPINE WITHOUT IV CONTRAST CLINICAL HISTORY: Low back pain. Left lower extremity radiculopathy. COMPARISON STUDY: Radiographs of the lumbar spine dated 01/18/2021. MRI of the lumbar spine dated 08/01/2020. CT of the lumbar spine dated 07/08/2020. TECHNIQUE: MRI of the lumbar spine is performed utilizing various T1 and T2- weighted sequences in the axial and sagittal planes. IV contrast was not administered for this examination. The examination is modestly degraded by motion artifact. FINDINGS: Lumbar spine: Vertebral body height and alignment are maintained throughout the lumbar spine. Normal marrow signal intensity is preserved throughout the visualized bony structures. There is mild straightening of the lumbar lordosis. Anterior and lateral marginal osteophytes are seen throughout. There is no spondylolysis. The transverse and spinous processes appear intact. No destructive bony lesion is seen. Intervertebral discs: Degenerative disc desiccation and mild loss of height is seen throughout the lumbar spine. Loss of height is greatest at L2-L3 and L3-L4. Spinal cord: The visualized spinal cord is normal in morphology and signal intensity. The conus medullaris terminates at the level of L2. L1-L2: There is broad-based posterior disc bulge and annular fissure. No significant acquired compromise of the central canal is identified. The neural foramina are clear. L2-L3: There is a small posterior disc protrusion with a superiorly extruded and possibly sequestered fragment is eccentric to the left. This measures up to 9 mm as seen on axial image #7 and sagittal image #8. This is similar to previous and may abut the transiting nerve roots. There is no significant acquired compromise of the central canal at this level. The neural foramina are patent. L3-L4: There is a large disc herniation eccentric to the left with an inferiorly extruded fragment. This impinges on the transiting left-sided nerve roots and contributes to moderate to severe central canal stenosis at this level. The minimum AP canal diameter measures 4.5 mm. The disc fragment measures up to 2.0 cm as seen on sagittal image #8 and axial image #17. There is left-sided subarticular stenosis. In conjunction with facet arthropathy there is mild bilateral neural foraminal stenosis. L4-L5: There is minimal posterior disc bulge. There is bilateral subarticular stenosis, left greater than right with possible impingement on the exiting left L4 nerve root. In conjunction with facet arthropathy there is mild bilateral neural foraminal stenosis. L5-S1: There is minimal disc bulge with bilateral subarticular stenosis. No acquired compromise of the central canal is identified. The neural foramina are patent. Sacrum: The visualized sacrum is normal in morphology and signal intensity. Soft tissues: The paraspinous soft tissues are normal as visualized. The retroperitoneal structures are grossly unremarkable but incompletely evaluated. IMPRESSION: 1. There is a large disc herniation eccentric to the left at L3-L4 with an inferiorly extruded fragment. This causes moderate to severe central canal stenosis and impinges on the transiting left-sided nerve roots as detailed above. This is new from 08/01/2020. 2. A small posterior disc protrusion with a superiorly extruded and possibly sequestered fragment eccentric to the left at L2-L3 is unchanged. This may impinge on the transiting nerve roots. 3. See discussion for detailed level by level analysis. 4. No destructive bony process is identified. Dictated: 01/21/2021 8:21 AM Transcribed: 01/21/2021 8:41 AM Iris [id number] EVAN_Radha Electronically signed by: Mc Dominguez M.D. 01/21/2021 8:55 AM Discharge Plan Visit Data Chief Complaint: Leg Injury/Pain Stated Complaint: LEFT LEG PAIN FROM HIP TO ANKLE ED Provider: [facility] ED Midlevel Provider: Jessie Gonzalez Discharge Problem: Lower extremity weakness, Acute low back pain with sciatica Patient Disposition: Admitted As Inpatient Forms Stand Alone Forms: [facility] Prescriptions Prescriptions: No Action gabapentin 300 mg capsule 300 mg PO .COMPLEX Qty: 90 RF: 2 omeprazole 10 mg capsule,delayed release(DR/EC) 10 mg PO QAM Qty: 90 RF: 3 Saccharomyces boulardii [Daily Probiotic (S. boulardii)] 250 mg capsule 250 mg PO DAILY RF: 0 cholecalciferol (vitamin D3) 125 mcg (5,000 unit) capsule 125 mcg PO DAILY RF: 0 cyanocobalamin (vitamin B-12) 1,000 mcg capsule 1,000 mcg PO DAILY RF: 0 oxycodone 5 mg tablet 5 mg PO Q6H PRN (Reason: pain) Qty: 14 RF: 0 cyclobenzaprine 10 mg tablet 10 mg PO Q8H Qty: 20 RF: 0 methylprednisolone [Medrol (Mikel)] 4 mg tablets,dose pack See Rx Instructions .ROUTE .COMPLEX Qty: 21 RF: 0 ascorbic acid (vitamin C) [Vitamin C] 500 mg Tablet 500 mg PO DAILY RF: 0 Referrals Referrals: Yessi Mcknight CRNP [Primary Care Provider] -
--- NOTE | 2021-01-21 08:56 | Magnetic Resonance Report ---
MRI OF THE LUMBAR SPINE WITHOUT IV CONTRAST CLINICAL HISTORY: Low back pain. Left lower extremity radiculopathy. COMPARISON STUDY: Radiographs of the lumbar spine dated 01/18/2021. MRI of the lumbar spine dated 07/06. CT of the lumbar spine dated 07/08/2020. TECHNIQUE: MRI of the lumbar spine is performed utilizing various T1 and T2-weighted sequences in the axial and sagittal planes. IV contrast was not administered for this examination. The examination is modestly degraded by motion artifact. FINDINGS: Lumbar spine: Vertebral body height and alignment are maintained throughout the lumbar spine. Normal marrow signal intensity is preserved throughout the visualized bony structures. There is mild straigh tening of the lumbar lordosis. Anterior and lateral marginal osteophytes are seen throughout. There i s no spondylolysis. The transverse and spinous processes appear intact. No destructive bony lesion is seen. Intervertebral discs: Degenerative disc desiccation and mild loss of height is seen throughout the rama mbar spine. Loss of height is greatest at L2-L3 and L3-L4. Spinal cord: The visualized spinal cord is normal in morphology and signal intensity. The conus medul lukasz terminates at the level of L2. L1-L2: There is broad-based posterior disc bulge and annular fissure. No significant acquired comprom ise of the central canal is identified. The neural foramina are clear. L2-L3: There is a small posterior disc protrusion with a superiorly extruded and possibly sequestered fragment is eccentric to the left. This measures up to 9 mm as seen on axial image #7 and sagittal i mage #8. This is similar to previous and may abut the transiting nerve roots. There is no significant acquired compromise of the central canal at this level. The neural foramina are patent. L3-L4: There is a large disc herniation eccentric to the left with an inferiorly extruded fragment. T his impinges on the transiting left-sided nerve roots and contributes to moderate to severe central c anal stenosis at this level. The minimum AP canal diameter measures 4.5 mm. The disc fragment measure s up to 2.0 cm as seen on sagittal image #8 and axial image #17. There is left-sided subarticular damian nosis. In conjunction with facet arthropathy there is mild bilateral neural foraminal stenosis. L4-L5: There is minimal posterior disc bulge. There is bilateral subarticular stenosis, left greater than right with possible impingement on the exiting left L4 nerve root. In conjunction with facet art hropathy there is mild bilateral neural foraminal stenosis. L5-S1: There is minimal disc bulge with bilateral subarticular stenosis. No acquired compromise of th e central canal is identified. The neural foramina are patent. Sacrum: The visualized sacrum is normal in morphology and signal intensity. Soft tissues: The paraspinous soft tissues are normal as visualized. The retroperitoneal structures a re grossly unremarkable but incompletely evaluated. IMPRESSION: 1. There is a large disc herniation eccentric to the left at L3-L4 with an inferiorly extruded fragme nt. This causes moderate to severe central canal stenosis and impinges on the transiting left-sided n erve roots as detailed above. This is new from 08/01/2020. 2. A small posterior disc protrusion with a superiorly extruded and possibly sequestered fragment ecc entric to the left at L2-L3 is unchanged. This may impinge on the transiting nerve roots. 3. See discussion for detailed level by level analysis. 4. No destructive bony process is identified. Dictated: 01/21/2021 8:21 AM Transcribed: 01/21/2021 8:41 AM Iris [id number] [email or web address] Electronically signed by: Mc Dominguez M.D. 01/21/2021 8:55 AM
[2021-01-21 10:20] LABS: Appearance Urine Clear (Clear); Bilirubin Urine Negative (Negative); Blood Urine Negative (Negative); Color Urine Yellow; Glucose Urine UA Negative (Negative); Ketones Urine Negative (Negative); Leukocyte Esterase Urine Negative (Negative); Nitrite Urine Negative (Negative); Protein Urine Negative (Negative); Specific Gravity Urine 1.013 (1.000-1.030); Urobilinogen Urine Negative (Negative); pH Urine 7.5 (4.5-7.5)
[2021-01-21 10:50] LABS: Amphetamines+Metham, Urine Neg (Neg); Barbiturates, Urine Neg (Neg); Benzodiazepine, Urine Neg (Neg); Cocaine, Urine Neg (Neg); MDMA (Ecstacy), Urine Neg (Neg); Methadone, Urine Neg (Neg); Opiate, Urine Pos (Neg); Phencyclidine, Urine Neg (Neg)
--- NOTE | 2021-01-21 10:56 | History & Physical Report ---
Date of Service January 21, 2021 Assessment & Plan (1) Lumbar radiculopathy: Plan: Patient with intractable pain not able to be controlled outpatient pain medications patient has an MRI scan with significant changes with concern for impingement of nerve roots causing radicular pain. Patient be brought to our facility for parenteral pain control and orthopedic spine surgery consultation. Patient has no contraindications for surgical intervention if required card iovascular screening questions were all negative (2) Hypertension: Plan: Patient with elevated blood pressure on presentation which could be secondary to pain we will continue to follow his medications as needed (3) Gastritis: Plan: Patient remains on a proton pump and admitted with pharmacy substitution for omeprazole if needed (4) Depression: (5) DVT prophylaxis: History of Present Illness Primary Care Provider: ARASH Porter 45-year-old male with intractable back pain. This is escalated over the last 2 weeks. Third visit to the ER in that timeframe. Patient previously has been seen by pain management with recent injections under fluoroscopy to try to control his pain. Has noticed some decrease reflexes and his pain is radicular in origin. Patient has taken his oral pain medications without help at home. MRI lumbar spine 01/21/2021 shows large disc herniation eccentric to the left L3-L4 with inferiorly extruded fragment causing moderate to severe central canal stenosis impinging on the transiting left sided nerve roots. A small posterior disc protrusion superiorly extruded and possibly sequestered fragment eccentric to the L2-L3 remains unchanged from previous this also may impinge transitioning nerve roots Allergies Allergy/AdvReac Type Severity Reaction Status Date / Time doxycycline Allergy Mild rash on Verified 01/21/21 07:20 chest naproxen AdvReac Intermediate constipatio Verified 01/21/21 07:20 n Home Medications Medication Instructions Recorded Confirmed Type Saccharomyces boulardii 250 mg 250 mg PO DAILY cap 09/23/20 01/21/21 History capsule (Daily Probiotic (S. boulardii)) cholecalciferol (vitamin D3) 125 125 mcg PO DAILY 11/05/20 01/21/21 History mcg (5,000 unit) capsule cyanocobalamin (vitamin B-12) 1,000 mcg PO DAILY 11/05/20 01/21/21 History 1,000 mcg capsule oxycodone 5 mg tablet 5 mg PO Q6H PRN #14 tab 01/08/21 01/21/21 Rx omeprazole 10 mg capsule,delayed 10 mg PO QAM #90 cap 01/13/21 01/21/21 Rx release cyclobenzaprine 10 mg tablet 10 mg PO Q8H #20 tab 01/18/21 01/21/21 Rx methylprednisolone 4 mg tablets in See Rx Instructions .ROUTE 01/18/21 01/21/21 Rx a dose pack (Medrol (Mikel)) .COMPLEX #21 ea gabapentin 300 mg capsule 300 mg PO .COMPLEX #90 cap 01/20/21 01/21/21 Rx ascorbic acid (vitamin C) 500 mg 500 mg PO DAILY 01/21/21 01/21/21 History tablet (Vitamin C) Past Med/Surg History Medical History Arthritis Chronic low back pain Chronic sinusitis Deafness in right ear Depression with anxiety not taking prescribed meds currently Elevated blood pressure reading without diagnosis of hypertension last check 138/85 Gastritis GERD (gastroesophageal reflux disease) History of COVID-23 Feb 2020 IBS (irritable bowel syndrome) Lower extremity weakness Lumbar radiculopathy Myofascial pain Nausea and vomiting after administration of anesthetic agent Partial deafness of left ear Sacroiliac joint pain TMJ (temporomandibular joint disorder) no issues, no surgery Vitamin D deficiency Surgical History History of colonoscopy with polypectomy History of esophagogastroduodenoscopy (EGD) History of toe surgery History of tonsillectomy and adenoidectomy History of wisdom tooth extraction S/P nasal surgery Status post excision of lipoma off right shoulder Family History Unknown Breast cancer Grandfather (Maternal) Stroke Grandmother (Paternal) Family history of diabetes mellitus Other Heart disease No family history of adverse response to anesthesia Denies family history of Ovarian cancer Prostate cancer Myocardial infarction Colorectal cancer Social History Smoking Status: Former smoker Age Started Using Tobacco: 28; Age Quit Using Tobacco: 35; packs per day: 1; Years Smoked: 7; Cigarettes Per Day: 20; Second Hand Exposure: No; Hx Alcohol Use: Yes Alcohol type: hard liquor Hx Substance Use: Yes Last Used Substance: Days (ago) Last Used Substance Other:: last use 1 week ago Substance Use Type Other:: marijuana approx 2x per month > advised Preferred Language: Faroese Communication Ability: Effective Visual Impairment: No Limitations Hearing Ability: Hard of Hearing Watch Parts Grinder Required: No Beliefs That Will Affect Care: None marital status: Current Living Situation: Spouse Current Living Situation Comment: Lives with and 14 yr old daughter current occupational status: employed current occupation: [employer] Feels Safe at Home: Yes Childhood Exposure to Second-Hand Smoke: Yes (parents) Assistive Devices: None Review of Systems Review of Systems: Mild distress and fatigue no headache, no visual changes no speech or swallowing issues no chest pain, pressure or palpitations no shortness of breath, cough or wheezes no abdominal pain, nausea or vomiting, diarrhea or constipation no dysuria, hematuria or frequency no focal joint pain or swelling Left lower back pain with radiation to his left leg does not go below the knee although he has loss of sensation below his knee no bruising, bleeding or rashes no focal signs of weakness or numbness or altered sensation no complaints of anxiety or depression.. Physical Exam Physical Exam: The patient appeared well nourished and normally developed. Vital signs as documented. Head exam is normocephalic atraumatic Neck is without JVD, thyromegaly, or carotid bruits. Lungs are clear to auscultation, no focal loss of breath sounds Cardiac exam, Rhythm is regular.. No murmurs, rubs or gallops. Abdominal exam reveals normal bowel sounds, soft non tender, no masses Extremities are nonedematous and both pedal pulses are present Neurologic exam is alert and oriented, no focal loss of strength no reflexes below his knee around his patella Skin is without bruises or rashes Psychologically is without concerns for anxiety or depression Results & Data Results & Data ([facility]) Vital Signs (Past 12 Hours) Vital Signs Temp Pulse Pulse Resp BP BP Pulse Ox 01/21/21 09:35 112 H 20 150/89 H 93 01/21/21 07:30 56 L 20 164/111 H 98 01/21/21 05:42 97.5 F L 121 H 24 154/113 H 93 PG Care Time/CCT Total # of Minutes Spent Total Time Spent with Patient: Total time spent is greater than 50% in coordination of care (as documented) at patient's floor/unit and/or counseling patient: Coding Level of Care Code 11934 Initial Inpt Care Lvl 2 Diagnoses Lumbar radiculopathy M54.16 Hypertension I10 Gastritis K29.70 Depression F32.9 DVT prophylaxis Z29.9
[2021-01-21] MEDS ORDERED: HYDROmorphone INJ 0.5 MG/0.5 ML SYR IV PRN (11:30)
--- NOTE | 2021-01-21 16:34 | Orthopedic Consultation ---
Date of Consultation January 21, 2021 Assessment & Plan (1) Lumbar radiculopathy: Assessment lumbar disc herniation L3-L4 with caudal migration. Plan at this time patient is in obvious severe distress with progressive neurologic decline. We discussed nonoperative treatment including epidural injections however in light of his severe pain and deficits surgery is clearly warranted. Would require lumbar laminotomy L3-L4 on the left and excision of herniated free fragment. We may consider posterior stabilization by way of a Coflex. Risk- benefit pros cons alternatives were outlined in detail. Patient is being admitted. We will plan for surgery tomorrow. History of Present Illness Reason for Consultation: Left leg pain and weakness History of Present Illness This is a 45-year-old male who presents with severe decline in status with pain in his left buttock anterior lateral thigh and into the anterior tibia. Began several weeks ago. This is his third visit to the emergency room as of symptoms have progressed. He denies any specific trauma fall or event. He does have a known history of a small disc condition L2-L3 from previous MRI. Patient has b een unable to sleep. He notes the leg giving way with ambulation. His right lower extremity is asymptomatic. Allergies Allergy/AdvReac Type Severity Reaction Status Date / Time doxycycline Allergy Mild rash on Verified 01/21/21 07:20 chest naproxen AdvReac Intermediate constipatio Verified 01/21/21 07:20 n Home Medications Medication Instructions Recorded Confirmed Type Saccharomyces boulardii 250 mg 250 mg PO DAILY cap 09/23/20 01/21/21 History capsule (Daily Probiotic (S. boulardii)) cholecalciferol (vitamin D3) 125 125 mcg PO DAILY 11/05/20 01/21/21 History mcg (5,000 unit) capsule cyanocobalamin (vitamin B-12) 1,000 mcg PO DAILY 11/05/20 01/21/21 History 1,000 mcg capsule oxycodone 5 mg tablet 5 mg PO Q6H PRN #14 tab 01/08/21 01/21/21 Rx omeprazole 10 mg capsule,delayed 10 mg PO QAM #90 cap 01/13/21 01/21/21 Rx release cyclobenzaprine 10 mg tablet 10 mg PO Q8H #20 tab 01/18/21 01/21/21 Rx methylprednisolone 4 mg tablets in See Rx Instructions .ROUTE 01/18/21 01/21/21 Rx a dose pack (Medrol (Mikel)) .COMPLEX #21 ea gabapentin 300 mg capsule 300 mg PO .COMPLEX #90 cap 01/20/21 01/21/21 Rx ascorbic acid (vitamin C) 500 mg 500 mg PO DAILY 01/21/21 01/21/21 History tablet (Vitamin C) Patient History Medical History Arthritis Chronic low back pain Chronic sinusitis Deafness in right ear Depression with anxiety not taking prescribed meds currently Elevated blood pressure reading without diagnosis of hypertension last check 138/85 Gastritis GERD (gastroesophageal reflux disease) History of COVID-23 Feb 2020 IBS (irritable bowel syndrome) Lower extremity weakness Lumbar radiculopathy Myofascial pain Nausea and vomiting after administration of anesthetic agent Partial deafness of left ear Sacroiliac joint pain TMJ (temporomandibular joint disorder) no issues, no surgery Vitamin D deficiency Surgical History History of colonoscopy with polypectomy History of esophagogastroduodenoscopy (EGD) History of toe surgery History of tonsillectomy and adenoidectomy History of wisdom tooth extraction S/P nasal surgery Status post excision of lipoma off right shoulder Family History Unknown Breast cancer Grandfather (Maternal) Stroke Grandmother (Paternal) Family history of diabetes mellitus Other Heart disease No family history of adverse response to anesthesia Denies family history of Ovarian cancer Prostate cancer Myocardial infarction Colorectal cancer Social History Smoking Status: Former smoker Age Started Using Tobacco: 28; Age Quit Using Tobacco: 35; packs per day: 1; Years Smoked: 7; Cigarettes Per Day: 20; Second Hand Exposure: No; Hx Alcohol Use: Yes Alcohol type: hard liquor Hx Substance Use: Yes Last Used Substance: Days (ago) Last Used Substance Other:: last use 1 week ago Substance Use Type Other:: marijuana approx 2x per month > advised Preferred Language: Telugu Communication Ability: Effective Visual Impairment: No Limitations Hearing Ability: Hard of Hearing Burglary Investigator Required: No Beliefs That Will Affect Care: None marital status: Current Living Situation: Spouse Current Living Situation Comment: Lives with and 14 yr old daughter current occupational status: employed current occupation: [employer] Feels Safe at Home: Yes Childhood Exposure to Second-Hand Smoke: Yes (parents) Assistive Devices: None Physical Exam Physical Exam: On exam he is in obvious distress. He is severe tension signs with even modest straight leg raising on the left. There is no significant discomfort with leg raising on the right. Deep tendon reflexes are absent. He has decreased sensation to light touch to the left anterior tibia compared to the right. He has a 4-/5 left dorsiflexion compared to 5 or 5 on the right. Extensor hallucis longus is a 5/5 bilaterally as well as plantar flexion bilaterally. He has significant quad breakaway weakness on the left compared to the right. Results & Data ([facility]) Vital Signs (Past 12 Hours) Vital Signs Temp Pulse Pulse Resp BP BP Pulse Ox 01/21/21 14:30 80 18 148/90 H 97 01/21/21 14:00 78 18 135/84 95 01/21/21 13:30 86 18 149/87 H 95 01/21/21 13:00 110 H 20 141/83 H 99 01/21/21 11:11 70 18 149/81 H 95 01/21/21 10:30 94 H 20 147/89 H 94 01/21/21 09:35 112 H 20 150/89 H 93 01/21/21 07:30 56 L 20 164/111 H 98 01/21/21 05:42 36.4 C L 121 H 24 154/113 H 93
[2021-01-21] MEDS ORDERED: POLYETHYLENE (MIRALAX) 17 GM PACK PO PRN (17:49)
[2021-01-21] MEDS ORDERED: ONDANSETRON INJ 2 MG/ML 2 ML VIAL IV PRN (17:49)
[2021-01-21] MEDS ORDERED: ALUMINUM/MAGNESIUM SUSP 30 ML UDC PO PRN (17:49)
[2021-01-21] MEDS ORDERED: HYDROmorphone INJ 1 MG/ML SYRINGE ONE (17:51)
[2021-01-21] MEDS: dexAMETHasone 4 MG in SYRINGE 0 ML IV SCH (18:21)
[2021-01-21] MEDS: CYCLOBENZAPRINE HCL 10 MG TAB PO SCH (18:23)
[2021-01-21] MEDS: ACETAMINOPHEN 500 MG TAB PO SCH ×2 (18:23→21:26)
[2021-01-21] MEDS: oxyCODONE HCL IR 5 MG TAB (IMMEDIATE RELEASE) PO PRN (19:21)
[2021-01-21] MEDS ORDERED: GABAPENTIN 300 MG CAP PO SCH (21:00)
[2021-01-21] MEDS: LORazepam 0.5 MG/1 ML VIAL IV PRN (21:26)
[2021-01-21] MEDS: HYDROmorphone INJ 1 MG/ML SYRINGE IV PRN (22:05)
[2021-01-22] MEDS: oxyCODONE HCL IR 5 MG TAB (IMMEDIATE RELEASE) PO PRN ×3 (00:54→23:09)
[2021-01-22] MEDS: HYDROmorphone INJ 1 MG/ML SYRINGE IV PRN ×4 (02:31→20:29)
[2021-01-22] MEDS: CYCLOBENZAPRINE HCL 10 MG TAB PO SCH ×3 (02:31→18:50)
[2021-01-22] MEDS: ACETAMINOPHEN 500 MG TAB PO SCH ×4 (05:36→21:49)
[2021-01-22] MEDS: LORazepam 0.5 MG/1 ML VIAL IV PRN (05:41)
[2021-01-22 06:11] LABS: Hematocrit (blood only) 43.9 % (42-52); Hemoglobin 15.4 g/dL (14.0-18.0); Mean Corpuscular Hemoglobin 30.8 pg (25-34); Mean Corpuscular Hgb Conc 35.1 g/dL (32-36); Mean Corpuscular Volume 87.8 fL (80-100); Mean Platelet Volume 9.6 fL (7.4-10.4); Platelet Count 296 K/uL (130-400); RDW Coefficient of Variation 12.4 % (11.5-14.5); RDW Standard Deviation 39.8 fL (36.4-46.3); White Blood Count 10.19 K/uL (4.8-10.8)
[2021-01-22 06:36] LABS: Creatinine Clr Calc Pharmacy 103.2 ml/min; Est GFR (African American) 93.8 ml/min; Est GFR (Non-African American) 80.9 ml/min; Potassium 3.7 mmol/L (3.5-5.1)
[2021-01-22] MEDS: SACCHAROMYCES BOULARDII 250 MG CAP PO SCH (10:09)
[2021-01-22] MEDS: GABAPENTIN 300 MG CAP PO SCH ×2 (10:09→21:49)
[2021-01-22] MEDS: PANTOprazole 40 MG TAB PO SCH (10:09)
[2021-01-22] MEDS: ASCORBIC ACID 500 MG TAB PO SCH (10:09)
[2021-01-22] MEDS: CHOLECALCIFEROL 1,000 UNITS 25 MCG TAB PO SCH (10:09)
[2021-01-22] MEDS: dexAMETHasone 4 MG in SYRINGE 0 ML IV SCH (13:09)
[2021-01-22] MEDS: CYANOCOBALAMIN 500 MCG TABLET (VITAMIN B-12) PO SCH ×2 (13:12→18:49)
[2021-01-22] MEDS ORDERED: HYDROmorphone INJ 0.5 MG/0.5 ML SYR IV PRN (13:50)
[2021-01-22] MEDS ORDERED: EPINEPHrine INJ 1 MG/ML AMP ONE (15:07)
[2021-01-22] MEDS ORDERED: BUPIVACAINE 0.5 % 5 MG/1 ML MPF 30ML VIAL ONE (15:07)
[2021-01-22] MEDS ORDERED: MIDAZOLAM HCL 1 MG/ML 2ML VIAL ONE (15:11)
[2021-01-22] MEDS ORDERED: PROPOFOL IV EMULSION 10 MG/ML 20 ML VIAL IV ONE (15:12)
[2021-01-22] MEDS ORDERED: ROCURONIUM BROMIDE 10 MG/ML 5 ML VIAL IV ONE (15:12)
[2021-01-22] MEDS ORDERED: fentaNYL citrate 100 MCG/2 ML VIAL ONE (15:12)
[2021-01-22] MEDS ORDERED: LIDOCAINE 2% 2 ML VIAL/AMP(20MG/ML) INFIL ONE (15:12)
[2021-01-22] MEDS ORDERED: DEXAMETHASONE SOD INJ 4 MG/ML VIAL ONE (15:12)
[2021-01-22] MEDS ORDERED: ONDANSETRON INJ 2 MG/ML 2 ML VIAL ONE (15:12)
[2021-01-22] MEDS ORDERED: SCOPOLAMINE 1 MG TDSY TD ONE (15:16)
[2021-01-22] MEDS ORDERED: FAMOTIDINE/PF 20 MG/2 ML VIAL IV ONE (15:17)
--- NOTE | 2021-01-22 15:38 | Anesthesiology Consultation ---
Date of Service January 22, 2021 Assessment & Plan Chart Review Chart Review: Acceptable Risk for Surgery Consults Requested none History Surgery Operation Date: 01/22/21 07:00 Proposed Procedures p L3-L4 Laminectomy with Possible Coflex - Donavon England DO Height/Weight Height: 5 ft 11 in Weight: 99.7 kg Allergies Allergy/AdvReac Type Severity Reaction Status Date / Time doxycycline Allergy Mild rash on Verified 01/21/21 07:20 chest naproxen AdvReac Intermediate constipatio Verified 01/21/21 07:20 n Medications Home Medications Medication Instructions Recorded Confirmed Last Taken Saccharomyces boulardii 250 mg 250 mg PO DAILY cap 09/23/20 01/21/21 Unknown capsule (Daily Probiotic (S. boulardii)) cholecalciferol (vitamin D3) 125 125 mcg PO DAILY 11/05/20 01/21/21 Unknown mcg (5,000 unit) capsule cyanocobalamin (vitamin B-12) 1,000 mcg PO DAILY 11/05/20 01/21/21 Unknown 1,000 mcg capsule oxycodone 5 mg tablet 5 mg PO Q6H PRN #14 tab 01/08/21 01/21/21 Unknown omeprazole 10 mg capsule,delayed 10 mg PO QAM #90 cap 01/13/21 01/21/21 Unknown release cyclobenzaprine 10 mg tablet 10 mg PO Q8H #20 tab 01/18/21 01/21/21 01/20/21 methylprednisolone 4 mg tablets in See Rx Instructions .ROUTE 01/18/21 01/21/21 01/20/21 a dose pack (Medrol (Mikel)) .COMPLEX #21 ea gabapentin 300 mg capsule 300 mg PO .COMPLEX #90 cap 01/20/21 01/21/21 01/20/21 ascorbic acid (vitamin C) 500 mg 500 mg PO DAILY 01/21/21 01/21/21 Unknown tablet (Vitamin C) Active Medications Generic Name Dose Route Start Last Admin Trade Name Freq PRN Reason Stop Dose Admin Acetaminophen 1,000 mg 01/21/21 17:49 01/22/21 14:57 Acetaminophen 500 Mg Tab PO 02/20/21 17:48 Not Given Q8 MARI Ascorbic Acid 500 mg 01/22/21 09:00 01/22/21 10:09 Ascorbic Acid 500 Mg Tab PO 02/21/21 08:59 500 mg DAILY MARI Administration Cyanocobalamin 1,000 mcg 01/22/21 09:00 01/22/21 13:12 Cyanocobalamin 500 Mcg Tablet (Vitamin B-12) PO 02/21/21 08:59 Not Given DAILY MARI Cyclobenzaprine HCl 10 mg 01/21/21 19:00 01/22/21 10:09 Cyclobenzaprine Hcl 10 Mg Tab PO 02/20/21 18:59 10 mg Q8H MARI Administration Gabapentin 300 mg 01/22/21 09:00 01/22/21 10:09 Gabapentin 300 Mg Cap PO 01/22/21 21:01 300 mg BID MARI Administration Dexamethasone 4 mg/ Syringe 1 mls @ 1 mls/min 01/21/21 11:30 01/22/21 13:09 IV 02/20/21 11:29 1 mls/min Q24H MARI Administration Lorazepam 0.5 mg in 1 mls @ 1 mls/min 01/21/21 17:49 01/22/21 05:41 Ativan IV 02/20/21 17:48 1 mls/min Q4H PRN Administration muscle spasm /anxiety Oxycodone HCl 10 mg 01/21/21 11:30 01/22/21 05:36 Oxycodone Hcl Ir 5 Mg Tab (Immediate Release) PO 02/04/21 11:29 10 mg Q6H PRN Administration pain Pantoprazole Sodium 40 mg 01/22/21 09:00 01/22/21 10:09 Pantoprazole 40 Mg Tab PO 02/21/21 08:59 40 mg QAM MARI Administration Saccharomyces Boulardii 250 mg 01/22/21 09:00 01/22/21 10:09 Saccharomyces Boulardii 250 Mg Cap PO 02/21/21 08:59 250 mg DAILY MARI Administration Vitamin D 5,000 units 01/22/21 09:00 01/22/21 10:09 Cholecalciferol 1,000 Units 25 Mcg Tab PO 02/21/21 08:59 5,000 units DAILY MARI Administration Past Medical History Medical History Arthritis Chronic low back pain Chronic sinusitis Deafness in right ear Depression with anxiety not taking prescribed meds currently Elevated blood pressure reading without diagnosis of hypertension last check 138/85 Gastritis GERD (gastroesophageal reflux disease) History of COVID-23 Feb 2020 IBS (irritable bowel syndrome) Lower extremity weakness Lumbar radiculopathy Myofascial pain Nausea and vomiting after administration of anesthetic agent Partial deafness of left ear Sacroiliac joint pain TMJ (temporomandibular joint disorder) no issues, no surgery Vitamin D deficiency Past Family History Family History Unknown Breast cancer Grandfather (Maternal) Stroke Grandmother (Paternal) Family history of diabetes mellitus Other Heart disease No family history of adverse response to anesthesia Denies family history of Ovarian cancer Prostate cancer Myocardial infarction Colorectal cancer Past Surgical History Surgical History History of colonoscopy with polypectomy History of esophagogastroduodenoscopy (EGD) History of toe surgery History of tonsillectomy and adenoidectomy History of wisdom tooth extraction S/P nasal surgery Status post excision of lipoma off right shoulder Social History Smoking Status: Never smoker tobacco type: cigarettes Smoking cigarettes per day: 20 Hx Alcohol Use: Yes Alcohol type: hard liquor alcohol intake frequency: holidays/special occasions only Hx Substance Use: No substance use type: marijuana Substance Use Type Other:: marijuana approx 2x per month > advised Last Used Substance: Days (ago) Last Used Substance Other:: last use 1 week ago Physical Exam Vital Signs Last Vital Signs Temp 36.8 C 01/22/21 14:31 Pulse 72 01/22/21 14:31 Resp 16 01/22/21 14:31 BP 146/92 H 01/22/21 14:31 Pulse Ox 97 01/22/21 14:31 Testing Laboratory Results 01/22/21 05:46 01/22/21 05:46 Urine Color Yellow 01/21/21 09:00 Urine Appearance Clear (Clear) 01/21/21 09:00 Urine pH 7.5 (4.5-7.5) 01/21/21 09:00 Ur Specific [place] 1.013 (1.000-1.030) 01/21/21 09:00 Urine Protein Negative (Negative) 01/21/21 09:00 Urine Glucose (UA) Negative (Negative) 01/21/21 09:00 Urine Ketones Negative (Negative) 01/21/21 09:00 Urine Nitrite Negative (Negative) 01/21/21 09:00 Ur Leukocyte Esterase Negative (Negative) 01/21/21 09:00
[2021-01-22] MEDS ORDERED: ceFAZolin 2,000 MG/15 ML IV PUSH IV ONE (15:50)
[2021-01-22] MEDS ORDERED: FLOSEAL HEMOSTATIC MATRIX 10ML TOP ONE (15:50)
[2021-01-22] MEDS ORDERED: HYDROmorphone INJ 2 MG/ML SYR/VIAL IV PRN (15:51)
[2021-01-22] MEDS ORDERED: METOCLOPRAMIDE HCL INJ 5 MG/ML 2 ML VIAL IV PRN ×2 (15:51→18:14)
[2021-01-22] MEDS ORDERED: ONDANSETRON INJ 2 MG/ML 2 ML VIAL IV PRN ×2 (15:51→18:14)
[2021-01-22] MEDS ORDERED: fentaNYL citrate 100 MCG/2 ML VIAL IV PRN (15:51)
[2021-01-22] MEDS ORDERED: ePHEDrine sulfate 50 MG/ML AMP IV PRN (15:51)
[2021-01-22] MEDS ORDERED: ATROPINE SULFATE 0.1 MG/ML 10ML SYR IV PRN (15:51)
[2021-01-22] MEDS ORDERED: PROMETHAZINE HCL 12.5 MG in SODIUM CHLORIDE 0.9% 50 ML IV PRN ×2 (15:51→18:14)
--- NOTE | 2021-01-22 15:58 | History & Physical Bridge Note ---
Date of Service January 22, 2021 History & Physical Bridge Note I have examined the patient, reviewed the History & Physical and in the interval since the performance of the History & Physical I have noted the following changes of clinical significance: no changes noted Laminectomy L3-L4 on the left with possible Coflex
[2021-01-22] MEDS ORDERED: METOCLOPRAMIDE HCL INJ 5 MG/ML 2 ML VIAL ONE (16:41)
[2021-01-22] MEDS ORDERED: SURGICEL ABSORB HEMOSTAT 2IN X 14IN TOP ONE (17:03)
[2021-01-22] MEDS ORDERED: PHENYLEPHRINE 100MCG/ML 5ML SYR ONE (17:05)
[2021-01-22] MEDS ORDERED: NEOSTIGMINE METHYLSULFATE 1 MG/ML 10ML VIAL ONE (17:14)
[2021-01-22] MEDS ORDERED: GLYCOPYRROLATE 0.2 MG/ML VIAL ONE (17:14)
--- NOTE | 2021-01-22 17:22 | Operative Report ---
Post Operative Report Pre & Post Diagnosis Operation Date: 01/22/21 07:00 Pre-Op Diagnosis: Lumbar disc herniation L3-L4 with free fragment Post-Op Diagnosis: Same I identified the patient and participated in the time-out.: Yes Procedure Operation Date: 01/22/21 07:00 Actual Procedures Lumbar laminotomy L3-L4 on the left with excision of herniated free fragment Surgeon Donavon England, DO Capital Equipment Specialist None Estimated Blood Loss 25 Findings Consistent with Post-Op Diagnosis Specimens None Indications This is a 45-year-old male who presents with severe radiculopathy and is here for the above-mentioned procedure. Description of Procedure Patient was met with identified informed consent obtained. Patient was then taken to the operative suite underwent ablation placed in a prone position the Jarod table atop the Amor frame. All bony prominences well-padded eyes inspected to ensure no external pressure placed upon the. This point the lumbar spine was prepped and draped in a sterile fashion. With the assistance of fluoroscopy identified the L3-L4 disc space in the midline incision was created overlying this region. Sharp dissection with the assistance of Bovie cautery was performed down to and exposing the interlaminar space at L3-L4 on the left. Then created a small laminotomy excising the lateral portion of ligamentum flavum and a small portion of the medial facet to expose a severely compressed traversing L4 nerve root. Was able to mobilize it medially and remove several massive fragments of disc material that migrated caudally along the pedicle of L4 on the left. The area was explored to ensure all fragments addressed and copiously irrigated and closed with 1 Vicryl in the fascia 2-0 Vicryl subcutaneously and 4 Monocryl for final skin closure. Steri-Strip sterile dressings placed. Patient waken taken to PACU stable condition. I attest to the content of the Intraoperative Record and any orders documented therein. Any exceptions are noted below.
[2021-01-22] MEDS ORDERED: SOD PHOSPHATE/SOD BIPHOSPHATE ENEMA 132 ML BTL PR PRN (18:14)
[2021-01-22] MEDS ORDERED: diphenhydrAMINE Capsule 25 MG CAP PO PRN (18:14)
[2021-01-22] MEDS ORDERED: FAMOTIDINE 20 MG TAB PO PRN (18:14)
[2021-01-22] MEDS ORDERED: hydrOXYzine HCl 25 MG TAB PO PRN (18:14)
[2021-01-22] MEDS ORDERED: NALOXONE HCL 0.4 MG/1 ML VIAL/CARP IV PRN (18:14)
[2021-01-22] MEDS ORDERED: ACETAMINOPHEN 1,000 MG/100 ML VIAL IV PRN (18:14)
[2021-01-22] MEDS ORDERED: ALUMINUM/MAGNESIUM SUSP 30 ML UDC PO PRN (18:14)
[2021-01-22] MEDS ORDERED: ACETAMINOPHEN 500 MG TAB PO PRN (18:14)
[2021-01-22] MEDS ORDERED: bisacodyL 10 MG SUPP PR PRN (18:14)
[2021-01-22] MEDS ORDERED: ONDANSETRON 4 MG OD TAB PO PRN (18:14)
[2021-01-22] MEDS ORDERED: DO NOT ADMINISTER FLU VACCINE PRN (18:14)
[2021-01-22] MEDS ORDERED: MAGNESIUM HYDROXIDE SUSP 30 ML UDC PO PRN (18:14)
[2021-01-22] MEDS ORDERED: LORazepam 0.5 MG TAB PO PRN (18:14)
[2021-01-22] MEDS ORDERED: DO NOT ADMINISTER PNEUMOCOCCAL VACCINE PRN (18:14)
[2021-01-22] MEDS ORDERED: LORazepam 0.5 MG/1 ML VIAL IV PRN (18:14)
[2021-01-22] MEDS: LACTATED RINGER'S 1,000 ML IV SCH ×2 (18:20→23:09)
--- NOTE | 2021-01-22 19:20 | Fluoroscopy Report ---
INTRAOPERATIVE RADIOGRAPH CLINICAL HISTORY: L3-L4 laminectomy. Fluoroscopy time: 10 seconds. FINDINGS: A single spot fluoroscopic view of the lumbar spine is presented. A surgical probe projects posterior to the superior endplate of L4. IMPRESSION: Intraoperative lumbar spine image as above. Electronically signed by: Mc Dominguez M.D. 01/22/2021 7:19 PM
--- NOTE | 2021-01-22 19:33 | Anesthesiology Progress Note ---
Date of Service January 22, 2021 Anesthesia Post Procedure Vital Signs Vital Signs: Temp Pulse Pulse Resp BP BP Pulse Ox 01/22/21 19:26 36.7 C 99 H 16 147/92 H 95 01/22/21 18:40 36.8 C 85 18 136/79 94 01/22/21 18:26 89 01/22/21 18:10 37.3 C 102 H 16 127/80 94 01/22/21 18:00 36.3 C L 74 14 135/88 96 01/22/21 17:50 96 H 14 144/79 H 96 01/22/21 17:40 92 H 14 131/79 95 01/22/21 17:33 36.2 C L 110 H 14 137/83 95 01/22/21 15:27 36.8 C 72 18 149/71 H 97 01/22/21 14:31 36.8 C 72 16 146/92 H 97 01/22/21 07:47 36.6 C 65 20 159/97 H 97 01/21/21 22:21 36.6 C 75 16 151/87 H 95 Pain Intensity Left Back: Pain Intensity: 7 Lumbar: Pain Intensity: 3 Transfer of Care Handoff Completed per policy Notes Mental Status: alert / awake / arousable and participated in evaluation Patient Amnestic to Procedure: Yes Nausea / Vomiting: adequately controlled Pain: adequately controlled Airway Patency, RR, SpO2: stable & adequate BP & HR: stable & adequate Hydration State: stable & adequate Anesthetic Complications: no major complications apparent and Pt Satisfied with anesthetic care
--- NOTE | 2021-01-22 20:37 | Hospitalist Progress Note ---
Date of Service January 22, 2021 Assessment & Plan (1) Lumbar radiculopathy: Plan: Patient with intractable pain not able to be controlled outpatient pain medications patient has an MRI scan with significant changes with concern for impingement of nerve roots causing radicular pain. Patient be brought to our facility for parenteral pain control and orthopedic spine surgery consultation. Patient has no contraindications for surgical intervention if required card iovascular screening questions were all negative Will increase frequency of pain medicine.awaiting procedure. (2) Hypertension: Plan: Patient with elevated blood pressure on presentation which could be secondary to pain we will continue to follow his medications as needed (3) Gastritis: Plan: Patient remains on a proton pump and admitted with pharmacy substitution for omeprazole if needed (4) Depression: (5) DVT prophylaxis: Admission and Anticipated Discharge Date Admission Date: January 21, 2021 Subjective Patient is in pain and requesting more pain medicine. Review of Systems Review of Systems: All systems reviewed & are unremarkable except as noted in HPI & below Physical Exam Physical Exam: The patient appeared well nourished and normally developed. Vital signs as documented. Head exam is normocephalic atraumatic Neck is without JVD, thyromegaly, or carotid bruits. Lungs are clear to auscultation, no focal loss of breath sounds Cardiac exam, Rhythm is regular.. No murmurs, rubs or gallops. Abdominal exam reveals normal bowel sounds, soft non tender, no masses Extremities are nonedematous and both pedal pulses are present Neurologic exam is alert and oriented, no focal loss of strength no reflexes below his knee around his patella Skin is without bruises or rashes Psychologically is without concerns for anxiety or depression Results & Data Results & Data ([facility]) Vital Signs (Past 12 Hours) Vital Signs Temp Pulse Pulse Resp BP BP Pulse Ox 01/22/21 20:14 89 16 138/87 93 01/22/21 19:26 36.7 C 99 H 16 147/92 H 95 01/22/21 18:40 36.8 C 85 18 136/79 94 01/22/21 18:26 89 01/22/21 18:10 37.3 C 102 H 16 127/80 94 01/22/21 18:00 36.3 C L 74 14 135/88 96 01/22/21 17:50 96 H 14 144/79 H 96 01/22/21 17:40 92 H 14 131/79 95 01/22/21 17:33 36.2 C L 110 H 14 137/83 95 01/22/21 15:27 36.8 C 72 18 149/71 H 97 01/22/21 14:31 36.8 C 72 16 146/92 H 97 PG Care Time/CCT Total # of Minutes Spent Total Time Spent with Patient: Total time spent is greater than 50% in coordination of care (as documented) at patient's floor/unit and/or counseling patient: Coding Level of Care Code 04037 Subseq Hosp Care Lvl 2 Diagnoses Lumbar radiculopathy M54.16 Hypertension I10 Gastritis K29.70 Depression F32.9 DVT prophylaxis Z29.9
[2021-01-22] MEDS ORDERED: DOCUSATE SODIUM/SENNA 50/8.6MG TAB PO SCH (21:00)
[2021-01-22] MEDS: ceFAZolin 2000MG 2,000 MG/15 ML SYR IV SCH (23:09)
[2021-01-23] MEDS: CYCLOBENZAPRINE HCL 10 MG TAB PO SCH ×2 (03:19→10:26)
[2021-01-23] MEDS: HYDROmorphone INJ 1 MG/ML SYRINGE IV PRN ×2 (03:19→09:59)
[2021-01-23] MEDS: ACETAMINOPHEN 500 MG TAB PO SCH ×2 (05:33→13:27)
[2021-01-23] MEDS: POLYETHYLENE (MIRALAX) 17 GM PACK PO SCH ×2 (05:33→12:23)
[2021-01-23 06:13] LABS: Hematocrit (blood only) 41.7 % (42-52); Hemoglobin 14.9 g/dL (14.0-18.0); Mean Corpuscular Hemoglobin 31.3 pg (25-34); Mean Corpuscular Hgb Conc 35.7 g/dL (32-36); Mean Corpuscular Volume 87.6 fL (80-100); Mean Platelet Volume 9.7 fL (7.4-10.4); Platelet Count 300 K/uL (130-400); RDW Coefficient of Variation 12.3 % (11.5-14.5); RDW Standard Deviation 39.5 fL (36.4-46.3); Red Blood Count 4.76 M/uL (4.7-6.1); White Blood Count 12.84 K/uL (4.8-10.8)
[2021-01-23 06:41] LABS: BUN Creatinine Ratio 15.5 (10-20); Calcium 9.1 mg/dl (8.5-10.1); Creatinine Clr Calc Pharmacy 102.3 ml/min; Est GFR (African American) 92.7 ml/min; Potassium 4.1 mmol/L (3.5-5.1)
[2021-01-23 06:41] LABS: Codeine Urine NEGATIVE ng/mL (<50); Hydrocodone Urine NEGATIVE ng/mL (<50); Hydromor Urine NEGATIVE ng/mL (<50); Morphine Urine 636 ng/mL (<50); Norhydrocodone Conf Ur NEGATIVE ng/mL (<50); Noroxycodone Urine 1930 ng/mL (<50); Oxycodone Urine 340 ng/mL (<50); Oxymorph Urine 639 ng/mL (<50)
[2021-01-23] MEDS: oxyCODONE HCL IR 5 MG TAB (IMMEDIATE RELEASE) PO PRN (08:32)
[2021-01-23] MEDS: SACCHAROMYCES BOULARDII 250 MG CAP PO SCH (08:36)
[2021-01-23] MEDS: CYANOCOBALAMIN 500 MCG TABLET (VITAMIN B-12) PO SCH (08:36)
[2021-01-23] MEDS: GABAPENTIN 300 MG CAP PO SCH ×2 (08:36→13:28)
[2021-01-23] MEDS: PANTOprazole 40 MG TAB PO SCH (08:36)
[2021-01-23] MEDS: ASCORBIC ACID 500 MG TAB PO SCH (08:36)
[2021-01-23] MEDS: CHOLECALCIFEROL 1,000 UNITS 25 MCG TAB PO SCH (08:36)
[2021-01-23] MEDS: ceFAZolin 2000MG 2,000 MG/15 ML SYR IV SCH (08:37)
--- NOTE | 2021-01-23 08:41 | Discharge Summary ---
Date of Service January 23, 2021 Admission HPI Per Admitting Provider 45-year-old male with intractable back pain. This is escalated over the last 2 weeks. Third visit to the ER in that timeframe. Patient previously has been seen by pain management with recent injections under fluoroscopy to try to control his pain. Has noticed some decrease reflexes and his pain is radicular in origin. Patient has taken his oral pain medications without help at home. MRI lumbar spine 01/21/2021 shows large disc herniation eccentric to the left L3-L4 with inferiorly extruded fragment causing moderate to severe central canal stenosis impinging on the transiting left sided nerve roots. A small posterior disc protrusion superiorly extruded and possibly sequestered fragment eccentric to the L2-L3 remains unchanged from previous this also may impinge transitioning nerve roots Principal Diagnosis Lumbar disc condition L3-L4 Discharge Data Allergies Allergy/AdvReac Type Severity Reaction Status Date / Time doxycycline Allergy Mild rash on Verified 01/21/21 07:20 chest naproxen AdvReac Intermediate constipatio Verified 01/21/21 07:20 n Consultations 01/21/21 11:03 Consult Orthopedic Surgery Stat 01/21/21 11:07 ED Decision to Admit Stat Procedures Performed Operation Date: 01/22/21 07:00 Actual Procedures p L3-L4 Laminectomy (Not Applicable) - Donavon England, Ordered Studies 01/21/21 06:19 MR lumbar spine wo con Stat 01/22/21 15:00 FL lumbar spine 2-3V Routine Hospital Course (1) Lumbar radiculopathy: Patient was admitted severe radiculopathy secondary to herniated nucleus pulposus L3-L4 and left. The next day he underwent lumbar laminotomy with excision of herniated fragment. Postoperatively his pain was markedly improved. Postop day 1 he had good strength testing was comfortable and subsequently discharged home. Discharge orders instructions from the chart for further review. Total Time Total Time Spent Total Time Spent (In Minutes): 20 minutes Discharge Plan Discharge Items Patient Disposition: Home - Self-Care Reason For Visit: lumbar radiculopathy Discharge Diagnosis: Lumbar disc herniation with radiculopathy Activity: As commented below Non-emergency contact: Primary Care Provider Call non-emergency contact if: you have any medication questions Follow-up/Referrals: Yessi Mcknight CRNP [Primary Care Provider] - Diet: Regular Addtl Attending Provider Instructions: ACTIVITY RECOMMENDATIONS: SELF CARE INSTRUCTIONS AFTER A LAMINECTOMY 1. No prolonged sitting (less than 30 minutes for the first 3 weeks after surgery). 2. No bending, lifting more than 5 pounds, or twisting (roll like a log when turning in bed). 3. You may shower 3 days after surgery if no drainage from wound. Thoroughly dry wound. Do not soak in the tub. 4. Please walk as much as you can for exercise. Gradually increase the distance that you walk as your endurance increases. 5. You may drive in 7-10 days if you are comfortable and no longer requiring pain medications. SPECIAL CARE INSTRUCTIONS: VERY IMPORTANT TO READ AND REVIEW A. Your surgical incision has been closed with a cosmetic suture under the skin that will dissolve in about 6 weeks. In 14 days, you can use a pair of clean scissors and cut the suture that is left outside of the skin at the ends of your incision. B. Complications are uncommon, but please contact us if you have any signs or symptoms of: 1. wound infection (fever higher than 102.5 degrees F, redness, separation of wound, drainage, or increasing pain from the incision) 2. blood clots in legs (pain, swelling, redness and warmth in legs) 3. urinary tract infection (fever higher than 102.5 degrees, burning upon urination or increased frequency of urination) 4. nerve problems (inability to walk on your toes or heels, numbness, loss of bowel or bladder control) 5. any other symptoms that concern you. C. Please call the office at if you have any concerns or questions about your operation or recovery. MANAGING PAIN AFTER SPINAL SURGERY 1. Narcotic medication is intended for short-term use and will be provided for surgical pain. Surgical pain usually lasts for a period of 4-6 weeks. Narcotic medication includes Percocet, Vicodin, Darvocet, Tylenol #3 or Lortab. 2. Longer-term pain is more appropriately treated with non-narcotic medication such as Tylenol ES. 3. Muscle spasm is not appropriately treated with narcotics. Muscle relaxers such as Soma, Flexeril or Skelaxin can be used along with Tylenol ES. 4. Remember that we all live with some "aches and pains". This is not unusual or uncommon after an injury or as we get older. 5. We will provide appropriate medication within the normal guidelines of their prescribed use. We will also be very cautious and aware of potential abuse and extended duration of patients' medication needs. 6. Please allow 2-3 days to process refills. Prescriptions will not be mailed but must be picked up at the office. FOLLOW UP VISIT: Keep your scheduled follow-up appointment. Any questions, please call the office at . Pending Studies at Discharge: No Stand-Alone Forms: [facility], Smoking Cessation Medications and DC Order Prescriptions: New tramadol 50 mg tablet 50 mg PO Q6H PRN (Reason: pain, moderate) Qty: 20 RF: 0 oxycodone 5 mg tablet 5 mg PO Q6H PRN (Reason: pain, severe) Qty: 20 RF: 0 Continued gabapentin 300 mg capsule 300 mg PO .COMPLEX Qty: 90 RF: 2 omeprazole 10 mg capsule,delayed release(DR/EC) 10 mg PO QAM Qty: 90 RF: 3 Saccharomyces boulardii [Daily Probiotic (S. boulardii)] 250 mg capsule 250 mg PO DAILY RF: 0 cholecalciferol (vitamin D3) 125 mcg (5,000 unit) capsule 125 mcg PO DAILY RF: 0 cyanocobalamin (vitamin B-12) 1,000 mcg capsule 1,000 mcg PO DAILY RF: 0 oxycodone 5 mg tablet 5 mg PO Q6H PRN (Reason: pain) Qty: 14 RF: 0 cyclobenzaprine 10 mg tablet 10 mg PO Q8H Qty: 20 RF: 0 methylprednisolone [Medrol (Mikel)] 4 mg tablets,dose pack See Rx Instructions .ROUTE .COMPLEX Qty: 21 RF: 0 ascorbic acid (vitamin C) [Vitamin C] 500 mg Tablet 500 mg PO DAILY RF: 0 Discharge Orders: Discharge Order (Routine); Ordered 01/23/21 Ordered By: Donavon England Admission Data Admit Date/Time: 01/21/21 11:03 Attending Provider: Jn Caicedo Admit Provider: Manjit Anguiano Primary Care Provider: Yessi Mcknight Other Providers: Donavon England ; Manjit Anguiano
[2021-01-23] MEDS ORDERED: dexAMETHasone 6 MG in SYRINGE 0 ML IV SCH (09:00)
[2021-01-23] MEDS: dexAMETHasone 4 MG in SYRINGE 0 ML IV SCH (12:24)
== END 2021-01-23 13:35 | disposition home or self-care (01) | DRG 520 ==
LOC: ED 05:36 → 3E 11:03 → SUATTDRO 11:03 → 3E 17:08